=== PATIENT | female | born 1975 | race Caucasian/White ===

== ENCOUNTER 2019-03-14 17:21 | Emergency (ER) | payer BC ==
--- NOTE | 2019-03-14 19:56 | ED ---
HPI Chest Pain - HPI Summary HPI Summary: This patient is a 43 year old F presenting to [facility] with a chief complaint of intermittent radiating pain starting in her chest since yesterday, 03/13/19 at 1000, worsening today, 03/14/19. Symptoms aggravated by nothing. Symptoms alleviated by nothing. Patient reports pain down left arm, tingly face, pain through upper back, CP described as tightness. Pt reports slight nausea. Pt denies SOB, vomiting, diaphoresis, runny nose, sore throat, diarrhea, constipation, urinating problems, swelling. Pt reports wooshing sounds through right ear. - History of Current Complaint Chief Complaint: EDChestPainROMI Time Seen by Provider: 03/14/19 19:37 Hx Obtained From: Patient Onset/Duration: Started Days Ago - 1, Still Present Timing: Intermittent Current Severity: Moderate Pain Intensity: 7 Pain Scale Used: 0-10 Numeric Chest Pain Radiates To:: Back - upper, Arm, Other - face, Character: Tightness Aggravating Factor(s): Nothing Alleviating Factor(s): Nothing Associated Signs and Symptoms: Positive: Nausea, Other: - denies epistaxis, sore throat, diarrhea, constipation, urinating issues; reports "wooshing" in right ear. Negative: Shortness of Breath, Swelling, Diaphoresis, Vomiting - Allergy/Home Medications Allergies/Adverse Reactions: Allergies Allergy/AdvReac Type Severity Reaction Status Date / Time No Known Allergies Allergy Verified 03/14/19 17:24 PMH/Surg Hx/FS Hx/Imm Hx Endocrine/Hematology History: Reports: Other Endocrine/Hematological Disorders - shingles Denies: Hx Diabetes Cardiovascular History: Reports: Hx Hypercholesterolemia - Surgical History Surgery Procedure, Year, and Place: Tonsillectomy Infectious Disease History: Yes Infectious Disease History: Denies: Traveled Outside the [place] in Last 30 Days - Family History Known Family History: Positive: Hypertension, Other - Jennifer Gehrig's disease, stroke, emphysema - Social History Alcohol Use: Occasionally Hx Substance Use: No Substance Use Type: Reports: None Hx Tobacco Use: Yes Smoking Status (MU): Current Every Day Smoker Review of Systems Positive: Other - face tingly. Negative: Skin Diaphoresis Positive: Other - denies ear "wooshing". Negative: Epistaxis, Sore Throat Positive: Chest Pain Negative: Shortness Of Breath Positive: Nausea, Other - denies constipation. Negative: Vomiting, Diarrhea Positive: other - denies urinary issues Positive: Other - left arm pain, back pain, denies swelling All Other Systems Reviewed And Are Negative: Yes Physical Exam - Summary Physical Exam Summary: Constitutional: Well-developed, Well-nourished, Alert. (-) Distressed Skin: Warm, Dry HENT: Normocephalic; Atraumatic Eyes: Conjunctiva normal Neck: Musculoskeletal ROM normal neck. (-) JVD, (-) Stridor, (-) Tracheal deviation Cardio: Rhythm regular, rate normal, Heart sounds normal; Intact distal pulses; The pedal pulses are 2+ and symmetric. Radial pulses are 2+ and symmetric. (-) Murmur Pulmonary/Chest wall: Effort normal. (-) Respiratory distress, (-) Wheezes, (-) Rales Abd: Soft, (-) tenderness, (-) Distension, (-) Guarding, (-) Rebound Musculoskeletal: tenderness to palpation of her arm mid humerus superior trapezius muscle between the shoulder and nape of the neck Lymph: (-) Cervical adenopathy Neuro: Alert, Oriented x3 Psych: Mood and affect Normal Triage Information Reviewed: Yes Vital Signs On Initial Exam: Initial Vitals Temp Pulse Resp BP Pulse Ox 97.2 F 78 15 145/94 100 03/14/19 17:23 03/14/19 17:23 03/14/19 17:23 03/14/19 17:23 03/14/19 17:23 Vital Signs Reviewed: Yes Procedures - Sedation Patient Received Moderate/Deep Sedation with Procedure: No Diagnostics - Vital Signs Vital Signs Temp Pulse Resp BP Pulse Ox 03/14/19 17:23 97.2 F 78 15 145/94 100 - Laboratory Result Diagrams: 03/14/19 19:59 03/14/19 19:59 Lab Statement: Any lab studies that have been ordered have been reviewed, and results considered in the medical decision making process. - Radiology Chest X-Ray Radiology Interpretation Completed By: ED Physician Summary of Radiographic Findings: Per ED Physician,. no acue process. Pending official report. - EKG 1733 Cardiac Rate: NL - 84 BPM EKG Rhythm: Sinus Rhythm Summary of EKG Findings: An EKG taken at 1733 reveals sinus rhythm at 84 BPM with normal NC, normal QRS, normal QTc, normal axis, normal ST, normal T-waves, normal EKG. Re-Evaluation - Re-Evaluation First Eval Re-Evaluation Time: 21:30 Comment: Pt is comfortable using shoulder and arm, no CP, good for discharge Chest Pain Course/Dx - Course Course Of Treatment: This patient is a 43 year old F presenting to [facility] with a chief complaint of intermittent radiating pain since yesterday, 03/13/19 at 1000, worsening today, 03/14/19. Patient reports pain down left arm, tingly face , pain through upper back, CP described as tightness. Pt reports slight nausea. Pt denies SOB, vomiting, diaphoresis, runny nose, sore throat, diarrhea, constipation, urinating problems, swelling. Physical Exam Findings reveals tenderness to palpation of her arm mid humerus superior trapezius muscle between the shoulder and nape of the neck. An EKG taken at 1733 reveals sinus rhythm at 84 BPM with normal NC, normal QRS, normal QTc, normal axis, normal ST , normal T-waves, normal EKG. CXR reveals no acute process. Pt was given 600 mg ibuprofen PO. Patient will be discharged with diagnosis of chest pain and follow up from Dr. Mcgill, PCP. The patient is agreeable with this plan. - Diagnoses Provider Diagnoses: Chest pain Discharge ED - Sign-Out/Discharge Documenting (check all that apply): Patient Departure - discharge - Discharge Plan Condition: Stable Disposition: HOME Patient Education Materials: Chest Pain (ED), Arm Pain (ED) Print Language: MONTSERRATIAN Referrals: Jess Mcgill MD [Primary Care Provider] - - Billing Disposition and Condition Condition: STABLE Disposition: Home - Attestation Statements Document Initiated by Suleiman: Yes Documenting Scribe: Dedra Amaya Provider For Whom Suleiman is Documenting (Include Credential): Dr. Karen Harley MD Scribe Attestation: Dedra Philippe scribed for Dr. Karen Harley MD on 03/14/19 at 2240. Scribe Documentation Reviewed: Yes Provider Attestation: The documentation as recorded by the Dedra hermosillo accurately reflects the service I personally performed and the decisions made by me, Dr. Karen Harley MD Status of Scribe Document: Viewed
[2019-03-14 20:06] LABS: ABS Basophils 0.1 10^3/ul (0-0.2); ABS Eosinophils 0.1 10^3/ul (0-0.6); ABS Monocytes 0.5 10^3/ul (0-0.8); ABS Neutrophils 4.6 10^3/ul (1.5-7.7); Eosinophil % 0.9 %; Hematocrit 39 % (35-47); Hemoglobin 13.3 g/dL (12.0-16.0); Lymphocyte % 36.7 %; Mean Corpuscular HGB Conc 35 g/dL (31-36); Mean Corpuscular Hemoglobin 34 pg (27-31); Mean Corpuscular Volume 98 fL (80-97); Mean Platelet Volume 7.2 fL (7.4-10.4); Platelet Count 422 10^3/uL (150-450); Red Blood Count 3.94 10^6 /uL (3.70-4.87); Red Cell Distribution Width 14 % (10-15); White Blood Count 8.2 10^3/uL (3.5-10.8)
[2019-03-14 20:24] LABS: ALT 13 U/L (7-52); AST 12 U/L (13-39); Albumin 4.3 g/dL (3.2-5.2); Albumin/Globulin Ratio 1.5 (1-3); Alkaline Phosphatase 65 U/L (34-104); Anion Gap 4 mmol/L (2-11); BUN/Creatinine Ratio 11.6 (8-20); Blood Urea Nitrogen 8 mg/dL (6-24); CO2 Carbon Dioxide 28 mmol/L (22-32); Calcium 9.7 mg/dL (8.6-10.3); Chloride 106 mmol/L (101-111); EGFR African American 113.4 (>60); EGFR Non-African American 93.8 (>60); Globulin 2.9 g/dL (2-4); Glucose 81 mg/dL (70-100); Potassium 3.6 mmol/L (3.5-5.0); Sodium 138 mmol/L (135-145); Total Protein 7.2 g/dL (6.4-8.9)
[2019-03-14 20:32] LABS: HCG Pregnancy < 0.60 mIU/mL
[2019-03-14] MEDS ORDERED: Ibuprofen TAB* 600 MG PO ONE (21:36)
[2019-03-14] MEDS ORDERED: Cyclobenzaprine TAB* 10 MG PO ONE (21:37)
[2019-03-14 21:53] VITALS: BP 121/74
== END 2019-03-14 21:40 | disposition home or self-care (01) ==
LOC: ED 17:21 → MERGE 17:21 → ED 21:56
DX: R07.9 Chest pain, unspecified (principal); R11.0 Nausea; E78.00 Pure hypercholesterolemia, unspecified; M54.9 Dorsalgia, unspecified; F17.210 Nicotine dependence, cigarettes, uncomplicated
CPT/HCPCS: 36415; 71045; 80053; 83605; 84484; 84702; 85025; 85379; 93005; 99283; A9270-GY